=== PATIENT | female | born 1960 | race Caucasian/White ===

== ENCOUNTER 2017-02-20 11:15 | Inpatient (IN) | payer OTHER ==
[~2017-02-20] VITALS: Ht 157.5 cm; Wt 64.0 kg
[2017-02-20 12:01] LABS: HEMATOCRIT 38.4 % (36.0-46.0); MCH 31.7 PG (29.0-34.0); MCHC 34.6 G/DL (30.0-36.0); MCV 91.6 FL (83-99); MEAN PLAT.VOLUME 8.8 uM^3 (9.5-12.4); PLATELET COUNT 277 K/uL (156-360); RBC DIS.WIDTH-CV 12.3 % (11.8-14.6); RBC DIS.WIDTH-SD 41.1 % (39-53); RED BLOOD COUNT 4.19 M/uL (3.80-5.20); WHITE BLOOD COUNT 8.9 K/uL (4.1-10.2)
[2017-02-20 12:15] LABS: CHLORIDE 104 mEq/L (99-109); POTASSIUM 3.3 mEq/L (3.7-5.4); SODIUM 139 mEq/L (136-147)
[2017-02-20 12:16] LABS: GLUCOSE 138 mg/dL (70-99)
[2017-02-20 12:18] LABS: ANION GAP 10 MEQ/L (2-14)
[2017-02-20 12:20] LABS: GFR ESTIMATE (CALCULATED) > 59 mL/min/
[2017-02-20 12:21] LABS: UREA NITROGEN (BUN) 11 mg/dL (9-23)
[2017-02-20 15:06] LABS: ADD MIUA? YES; BILIRUBIN NEGATIVE; BLOOD NEGATIVE; COLOR YELLOW ((YELLOW)); GLUCOSE (STRIP) NEGATIVE; KETONES 5; LEUKOCYTES NEGATIVE; NITRITE NEGATIVE; PROTEIN (STRIP) 30; SPECIFIC GRAVITY 1.035 (1.000-1.030); UROBILINOGEN 0.2 MG/DL (0.2-1.0)
[2017-02-20 15:24] LABS: BACTERIA NONE SEEN /HPF; EPITHELIAL CELLS RARE /HPF; MUCUS 4+ /LPF; RED BLOOD CELLS 0-5 /HPF (0-5); WHITE BLOOD CELLS 0-5 /HPF (0-5)
[2017-02-20 15:31] LABS: INFLUENZA A VIRAL ANTIGEN NEGATIVE; INFLUENZA B VIRAL ANTIGEN NEGATIVE
[2017-02-20 15:52] LABS: TROP-I INTERPRETATION NEGATIVE; TROPONIN-I 0.01 ng/mL (0.0-0.30)
[2017-02-20] MEDS ORDERED: LISINOPRIL5 MG PO (15:58)
[2017-02-20] MEDS ORDERED: FLUOXETINE HCL20 MG PO (15:59)
[2017-02-20] MEDS ORDERED: GABAPENTIN600 MG PO (15:59)
[2017-02-20] MEDS ORDERED: COMBIVENT RESPIM4 GM IH (15:59)
[2017-02-20] MEDS ORDERED: OXYCODONE-APAP1 EACH PO (16:00)
[2017-02-20] MEDS ORDERED: SYSTANE BALANCE10 ML BOTH EYES (16:01)
[2017-02-20 18:47] VITALS: BP 133/67
[2017-02-20 19:48] VITALS: BP 133/63
[2017-02-20 21:04] LABS: TROP-I INTERPRETATION NEGATIVE; TROPONIN-I < 0.01 ng/mL (0.0-0.30)
[2017-02-21] VITALS (7 sets, daily range): BP systolic 132–164; BP diastolic 62–77
[2017-02-21 07:18] LABS: TROP-I INTERPRETATION NEGATIVE; TROPONIN-I < 0.01 ng/mL (0.0-0.30)
[2017-02-21 07:19] LABS: TROP-I INTERPRETATION NEGATIVE; TROPONIN-I < 0.01 ng/mL (0.0-0.30)
[2017-02-21 12:21] LABS: ANION GAP 14 MEQ/L (2-14); CHLORIDE 104 MEQ/L (99-109); POTASSIUM 3.9 MEQ/L (3.7-5.4); SAMPLE HEMOLYSIS CHECK 0; SAMPLE ICTERIC CHECK 0; SAMPLE LIPEMIA CHECK 0; SODIUM 140 MEQ/L (136-147)
[2017-02-21 12:26] LABS: GFR ESTIMATE (CALCULATED) > 59 mL/min/; GLUCOSE 197 mg/dL (70-99); UREA NITROGEN (BUN) 17 mg/dL (9-23)
[2017-02-22 04:17] VITALS: BP 132/66
[2017-02-22 06:17] LABS: EOSINOPHIL (%) 0.1 % (0-5); HEMATOCRIT 35.4 % (36.0-46.0); IMMATURE GRANULOCYTE (%) 0.6 % (0.0-0.7); IMMATURE GRANULOCYTE COUNT 0.1 K/uL; INSTRUMENT ABS NEUTROPHIL CT 13.1 K/uL; LYMPHOCYTE COUNT 1.8 K/uL (1.0-2.8); MCH 31.4 PG (29.0-34.0); MCHC 33.9 G/DL (30.0-36.0); MCV 92.7 FL (83-99); MONOCYTE (%) 4.3 % (3-12); MONOCYTE COUNT 0.7 K/uL (0-0.8); NEUTROPHIL (%) 83.6 % (45-76); NEUTROPHIL COUNT 13.1 K/uL (1.8-6.4); PLATELET COUNT 293 K/uL (156-360); RBC DIS.WIDTH-CV 12.7 % (11.8-14.6); RBC DIS.WIDTH-SD 42.9 % (39-53); RED BLOOD COUNT 3.82 M/uL (3.80-5.20); WHITE BLOOD COUNT 15.7 K/uL (4.1-10.2)
[2017-02-22 06:41] LABS: ANION GAP 9 MEQ/L (2-14); CHLORIDE 106 MEQ/L (99-109); GFR ESTIMATE (CALCULATED) > 59 mL/min/; SAMPLE HEMOLYSIS CHECK 0; SAMPLE ICTERIC CHECK 0; SAMPLE LIPEMIA CHECK 0; SODIUM 141 MEQ/L (136-147); UREA NITROGEN (BUN) 14 mg/dL (9-23)
[2017-02-22 06:43] LABS: GLUCOSE 99 mg/dL (70-99)
[2017-02-22 07:17] VITALS: BP 143/74
[2017-02-22 11:21] VITALS: BP 145/74
[2017-02-22 15:19] VITALS: BP 156/74
[2017-02-22 19:40] VITALS: BP 165/76
[2017-02-22 23:39] VITALS: BP 160/79
[2017-02-23 04:22] VITALS: BP 167/76
[2017-02-23 08:04] VITALS: BP 166/83
[2017-02-23 11:06] VITALS: BP 142/79
[2017-02-23] MEDS ORDERED: SPIRIVA RESPIMAT4 GM IH (12:44)
[2017-02-23] MEDS ORDERED: AMOX TR-K CLV1 EAC4 PO (12:44)
[2017-02-23] MEDS ORDERED: PREDNISONE20 MG PO (12:44)
[2017-02-23] MEDS ORDERED: NICOTINE PATCH1 EAC2 TD (12:44)
[2017-02-23] MEDS ORDERED: ADVAIR HFA120 INHALA IH (12:44)
== END 2017-02-23 13:55 | disposition home or self-care (01) | DRG 192 ==
LOC: EME 11:15 → 3EAST 14:24 → EDOF 14:24 → ENRESERV 14:44 → EDOF 14:44 → ENRESERV 17:34 → 3EAST 18:07
PROVIDERS: Internal Medicine; Internal Medicine Cardiovascular Disease; Physician Assistant; Student in an Organized Health Care Education/Training Program
DX: J44.1 Chronic obstructive pulmonary disease with (acute) exacerbation (principal); R09.02 Hypoxemia; R06.03 Acute respiratory distress; F17.210 Nicotine dependence, cigarettes, uncomplicated; I10 Essential (primary) hypertension; E87.6 Hypokalemia; J98.01 Acute bronchospasm
CPT/HCPCS: 71020; 80048; 81003; 83605; 84484; 85025; 85027; 87040; 87070; 87205; 87502; 93005; 93306; 93880; 94640; 94640 76; 94644; 94799; 99202; 99281; 99285; J1650; J2930; J7512

== ENCOUNTER 2017-03-24 10:02 | Day surgery (SDC) | payer OTHER ==
[~2017-03-24] VITALS: Ht 160 cm; Wt 65.8 kg
[~2017-03-24 10:02] MED LIST: ADVAIR HFA120 INHALA IH; AMOX TR-K CLV1 EAC4 PO; ANORO ELLIPTA1 EACH IH; ASPIR-LOW81 MG PO; COMBIVENT RESPIM4 GM IH; FLUOXETINE HCL20 MG PO; GABAPENTIN600 MG PO; LISINOPRIL5 MG PO; NICOTINE PATCH1 EAC2 TD; OXYCODONE-APAP1 EACH PO; PREDNISONE20 MG PO; SPIRIVA RESPIMAT4 GM IH; SYSTANE BALANCE10 ML BOTH EYES
== END 2017-03-24 16:52 | disposition home or self-care (01) ==
LOC: CATH 10:02
DX: I25.10 Atherosclerotic heart disease of native coronary artery without angina pectoris (principal); J44.9 Chronic obstructive pulmonary disease, unspecified; I65.22 Occlusion and stenosis of left carotid artery; I10 Essential (primary) hypertension; Z79.82 Long term (current) use of aspirin; Z82.49 Family history of ischemic heart disease and other diseases of the circulatory system; Z87.891 Personal history of nicotine dependence
CPT/HCPCS: C1769; C1887; J1644; J2250; J3010